=== PATIENT | female | born 1945 | race African-American/Black ===

== ENCOUNTER 2020-09-04 11:54 | Outpatient (CLI) | payer MEDICARE | END 2020-09-04 11:55 | disposition home or self-care (01) | LOC: CSHCP 11:54 | PROVIDERS: ATTEND Internal Medicine Cardiovascular Disease | DX: R06.00 Dyspnea, unspecified (principal); R94.2 Abnormal results of pulmonary function studies | CPT/HCPCS: 94060; 94726; 94729; 94760 ==